=== PATIENT | female | born 1995 | race African-American/Black ===

== ENCOUNTER 2016-11-05 04:39 | Inpatient (IN) | payer OTHER ==
[~2016-11-05] VITALS: Ht 162.6 cm; Wt 56.5 kg
[2016-11-05 05:37] LABS: ADD MIUA? NO; BILIRUBIN NEGATIVE; BLOOD NEGATIVE; COLOR YELLOW ((YELLOW)); GLUCOSE (STRIP) NEGATIVE; KETONES NEGATIVE; LEUKOCYTES NEGATIVE; NITRITE NEGATIVE; PH, URINE 7.5 (5-8); PROTEIN (STRIP) NEGATIVE; SPECIFIC GRAVITY 1.008 (1.000-1.030); UCUL ADDED? NO; UROBILINOGEN 0.2 MG/DL (0.2-1.0)
[2016-11-05 05:43] LABS: HEMATOCRIT 40.2 % (36.0-46.0); MCH 28.7 PG (29.0-34.0); MCHC 34.8 G/DL (30.0-36.0); MCV 82.4 FL (83-99); MEAN PLAT.VOLUME 8.1 uM^3 (9.5-12.4); PLATELET COUNT 529 K/uL (156-360); RBC DIS.WIDTH-CV 13.2 % (11.8-14.6); RBC DIS.WIDTH-SD 38.9 % (39-53); RED BLOOD COUNT 4.88 M/uL (3.80-5.20)
[2016-11-05 05:44] LABS: CHLORIDE 105 mEq/L (99-109); POTASSIUM 3.6 mEq/L (3.7-5.4); SODIUM 137 mEq/L (136-147)
[2016-11-05 05:46] LABS: EOSINOPHIL (%) 4.6 % (0-5); EOSINOPHIL COUNT 0.3 K/uL (0-0.3); IMMATURE GRANULOCYTE (%) 0.3 % (0.0-0.7); IMMATURE GRANULOCYTE COUNT 0.2 K/uL; LYMPHOCYTE COUNT 2.4 K/uL (1.0-2.8); MONOCYTE (%) 11.6 % (3-12); MONOCYTE COUNT 0.8 K/uL (0-0.8); NEUTROPHIL (%) 48.1 % (45-76); NEUTROPHIL COUNT 3.4 K/uL (1.8-6.4)
[2016-11-05 05:47] LABS: GLUCOSE 97 mg/dL (70-99)
[2016-11-05 05:48] LABS: ANION GAP 10 MEQ/L (2-14); TOTAL BILIRUBIN 0.4 mg/dL (0.0-1.0)
[2016-11-05 05:50] LABS: GFR ESTIMATE (CALCULATED) > 59 mL/min/; SERUM ETHYL ALCOHOL < 10 mg/dL
[2016-11-05 05:51] LABS: ALKALINE PHOSPHATASE 51 IU/L (3-129)
[2016-11-05 05:52] LABS: UREA NITROGEN (BUN) 12 mg/dL (9-23)
[2016-11-05 05:53] LABS: AMPHETAMINE NEGATIVE (500 ng/mL); BARBITURATES NEGATIVE (200 ng/mL); BENZODIAZEPINES NEGATIVE (150 ng/mL); COCAINE NEGATIVE (150 ng/mL); METHADONE NEGATIVE (200 ng/mL); METHAMPHETAMINE NEGATIVE (500 ng/mL); OPIATES (MORPHINE) NEGATIVE (100 ng/mL); OXYCODONE NEGATIVE (100 ng/mL); PHENCYCLIDINE NEGATIVE (25 ng/mL); PROPOXYPHENE NEGATIVE (300 ng/mL); THC CANNABINOIDS NEGATIVE (50 ng/mL); TRICYCLIC ANTIDEPRESSANTS NEGATIVE (300 ng/mL)
[2016-11-05 05:54] LABS: INTERNAL CONTROLS VALID? YES
[2016-11-05 05:54] LABS: SALICYLATE < 5.0 MG/DL (15-30)
[2016-11-05 06:02] LABS: QUANTITATIVE HCG < 4.0 MIU/ML
[2016-11-05] MEDS ORDERED: BENADRYL25 MG PO (11:20)
[2016-11-05 12:13] VITALS: BP 125/79
[2016-11-05 16:25] VITALS: BP 120/75
[2016-11-05 19:47] VITALS: BP 105/66
[2016-11-06 00:20] VITALS: BP 113/75
[2016-11-06 04:33] VITALS: BP 110/65
[2016-11-06 07:36] VITALS: BP 112/66
[2016-11-06 11:46] VITALS: BP 112/66
[2016-11-06 15:55] VITALS: BP 113/74
[2016-11-06 19:30] VITALS: BP 116/70
[2016-11-07 00:06] VITALS: BP 114/68
[2016-11-07 03:37] VITALS: BP 112/68
[2016-11-07 06:39] LABS: HEMATOCRIT 37.8 % (36.0-46.0); MCH 28.3 PG (29.0-34.0); MCHC 33.3 G/DL (30.0-36.0); MCV 84.8 FL (83-99); MEAN PLAT.VOLUME 8.1 uM^3 (9.5-12.4); PLATELET COUNT 404 K/uL (156-360); RBC DIS.WIDTH-CV 13.2 % (11.8-14.6); RBC DIS.WIDTH-SD 39.8 % (39-53); RED BLOOD COUNT 4.46 M/uL (3.80-5.20); WHITE BLOOD COUNT 6.1 K/uL (4.1-10.2)
[2016-11-07 07:15] LABS: ANION GAP 8 MEQ/L (2-14); CHLORIDE 106 MEQ/L (99-109); GFR ESTIMATE (CALCULATED) > 59 mL/min/; GLUCOSE 86 mg/dL (70-99); POTASSIUM 3.7 MEQ/L (3.7-5.4); SAMPLE HEMOLYSIS CHECK 0; SAMPLE ICTERIC CHECK 0; SAMPLE LIPEMIA CHECK 0; SODIUM 139 MEQ/L (136-147); UREA NITROGEN (BUN) 6 mg/dL (9-23)
[2016-11-07] MEDS ORDERED: ZOFRAN4 MG PO (08:27)
[2016-11-07 08:28] VITALS: BP 120/67
[2016-11-07] MEDS ORDERED: PROTONIX20 MG PO (09:14)
== END 2016-11-07 13:17 | disposition home or self-care (01) | DRG 918 ==
LOC: EME → EDBD 04:39 → EDOF 10:19 → 4EAST 10:19 → EDOF 11:42 → 4EAST 11:48
PROVIDERS: Emergency Medicine; Internal Medicine
DX: T45.0X2A Poisoning by antiallergic and antiemetic drugs, intentional self-harm, initial encounter (principal); F32.9 Major depressive disorder, single episode, unspecified; Z91.5 Personal history of self-harm; Z62.820 Parent-biological child conflict; Z63.79 Other stressful life events affecting family and household; R50.9 Fever, unspecified
CPT/HCPCS: 80048; 80053; 81003; 84702; 85025; 85027; 93005; 99281; 99285; C9113; G0480; J7030